=== PATIENT | male | born 1990 | race Caucasian/White ===

== ENCOUNTER → 2018-05-05 | Outpatient (CLI) | payer BC ==
[~2018-05-05] MED LIST: None per pt
[2018-05-05 14:36] LABS: BASOPHILS # (AUTO) 0.05 x10^3/uL (0-0.1); BASOPHILS % (AUTO) 1 % (0-1); EOSINOPHILS # (AUTO) 0.14 x10^3/uL (0-0.4); EOSINOPHILS % (AUTO) 3 % (1-7); LYMPHOCYTES # (AUTO) 1.82 x10^3/uL (1-3.4); LYMPHOCYTES % (AUTO) 33 % (22-44); MD NO; MEAN CORPUSCULAR HEMOGLOBIN 30.9 pg (27.5-34.5); MEAN CORPUSCULAR HGB CONC 34.7 g/dL (33.2-36.2); MEAN CORPUSCULAR VOLUME 88.8 fL (81-97); MEAN PLATELET VOLUME 7.2 fL (7.4-10.4); MONOCYTES # (AUTO) 0.41 x10^3/uL (0.2-0.8); MONOCYTES % (AUTO) 7 % (2-9); NEUTROPHILS # (AUTO) 3.17 x10^3/uL (1.8-6.8); NEUTROPHILS % (AUTO) 57 % (42-75); PLATELET COUNT 250 x10^3/uL (130-400); RED BLOOD COUNT 4.95 x10^6/uL (4.38-5.82); RED CELL DISTRIBUTION WIDTH 12.9 % (9.4-14.8)
[2018-05-05 14:46] LABS: ALANINE AMINOTRANSFERASE 32 U/L (12-78); ALBUMIN 4.3 g/dL (3.4-5.0); ANION GAP 6 mmol/L (5-15); CALCIUM 8.9 mg/dL (8.5-10.1); CHLORIDE 110 mmol/L (98-107)
[2018-05-05 14:49] LABS: ALKALINE PHOSPHATASE 47 U/L (45-117); BILIRUBIN,TOTAL 0.2 mg/dL (0.2-1.0); CREATININE 1.19 mg/dL (0.7-1.3); TOTAL PROTEIN 7.9 g/dL (6.4-8.2)
== END | disposition home or self-care (01) ==
LOC: STAR 13:28
PROVIDERS: ATTEND Surgery
DX: Z01.818 Encounter for other preprocedural examination (principal)
CPT/HCPCS: 36415; 80053; 85025

== ENCOUNTER 2018-05-11 06:24 | Day surgery (SDC) | payer BC ==
[~2018-05-11] VITALS: Ht 170.2 cm; Wt 90.0 kg
[2018-05-11] MEDS ORDERED: LACTATED RINGERS 1,000 ML IV SCH (07:06)
[2018-05-11 07:29] VITALS: BP 130/83
[2018-05-11] MEDS ORDERED: BUPIVACAINE/PF-EPI 0.5% 1:200K ONE (08:17)
[2018-05-11] MEDS ORDERED: MIDAZOLAM 1 MG/ML, 2ML ONE (10:00)
[2018-05-11] MEDS ORDERED: FENTANYL PF 250 MCG/5ML ONE (10:00)
[2018-05-11] MEDS ORDERED: PROPOFOL 10 MG/ML, 20ML ONE (10:22)
[2018-05-11] MEDS ORDERED: ONDANSETRON 2MG/ML, 2ML ONE (10:22)
[2018-05-11] MEDS ORDERED: LACTATED RINGERS 1,000 ML ONE (10:22)
[2018-05-11] MEDS ORDERED: CEFAZOLIN 1,000 MG ONE (10:22)
[2018-05-11] MEDS ORDERED: KETOROLAC 30 MG/1 ML ONE (10:22)
[2018-05-11] MEDS ORDERED: DEXAMETHASONE 4 MG/ML, 1ML ONE (10:22)
[2018-05-11] MEDS ORDERED: MEPERIDINE/PF 50 MG/ML ONE (10:29)
[2018-05-11] MEDS ORDERED: HYDROmorphone 1 MG/ML, 1ML IV PRN (11:30)
[2018-05-11] MEDS ORDERED: ALBUTEROL SULFATE 2.5 MG/3 ML NPPB PRN (11:30)
[2018-05-11] MEDS ORDERED: ACETAMINOPHEN 325 MG TABLET PO PRN (11:30)
[2018-05-11] MEDS ORDERED: LORazepam 2 MG/ML, 1ML IVPush PRN (11:30)
[2018-05-11] MEDS ORDERED: hydrALAzine 20 MG/ML, 1ML IV PRN (11:30)
[2018-05-11] MEDS ORDERED: LABETALOL 5MG/ML, 20ML IV PRN (11:30)
[2018-05-11] MEDS ORDERED: OXYcodone 5 MG/5 ML ORAL.SOL UDC PO PRN (11:30)
[2018-05-11] MEDS ORDERED: MEPERIDINE/PF 25MG/0.5ML IVPush PRN (11:30)
[2018-05-11] MEDS ORDERED: KETOROLAC 30 MG/1 ML IM PRN (11:30)
[2018-05-11] MEDS ORDERED: PROMETHAZINE 25 MG/ML, 1ML IV PRN (11:30)
[2018-05-11] MEDS ORDERED: FENTANYL PF 100 MCG/2ML IV PRN (11:30)
== END 2018-05-11 14:00 | disposition home or self-care (01) ==
LOC: OUT 06:24 → EDSTATUS 10:00 → OUT 14:00
PROVIDERS: ATTEND Surgery
DX: C43.71 Malignant melanoma of right lower limb, including hip (principal); R59.1 Generalized enlarged lymph nodes; Z98.890 Other specified postprocedural states; Z72.89 Other problems related to lifestyle
CPT/HCPCS: 27364; 38500; 78195; 88305; 88307; A9541; C9898; J0690; J1100; J1885; J2175; J2250; J2405; J2704; J3010; J7120